=== PATIENT | female | born 1980 | race American Indian/Alaskan Native ===

== ENCOUNTER 2016-10-25 08:28 | Outpatient (CLI) | payer MEDICAID ==
[2016-10-25 08:43] VITALS: BP 126/61
[2016-10-25] MEDS ORDERED: LACTATED RINGERS 500 ML IV ONE (09:00)
[2016-10-25 10:16] LABS: Bacteria,Urine 1+ /HPF (Negative); Bilirubin,Urine NEG (Negative); Blood,Urine NEG (Negative); Ketones,Urine NEG (Negative); Leukocyte Esterase,Urine NEG (Negative); Nitrite,Urine NEG (Negative); Protein,Urine <15 mg/dL mg/dL (Negative); Urobilinogen,Urine < 2.0 mg/dL (<2.0)
== END 2016-10-25 11:24 | disposition home or self-care (01) ==
LOC: TRG 08:28
PROVIDERS: ATTEND Obstetrics & Gynecology Gynecology
DX: O77.9 Labor and delivery complicated by fetal stress, unspecified (principal); O47.9 False labor, unspecified; Z3A.00 Weeks of gestation of pregnancy not specified
CPT/HCPCS: 59025; 81001; 96360; J7120